=== PATIENT | female | born 1960 | race Hispanic/Latino ===

== ENCOUNTER → 2020-08-17 11:16 | Outpatient (CLI) | payer OTHER, SELFPAY ==
--- NOTE | ~2020-08-17 | XR_ITS ---
EXAMINATION: XR abdomen/kub 1V DATE: 08/17/2020 11:33 INDICATION: Right ureteral stone. TECHNIQUE: A supine view of the abdomen on 2 radiographs was obtained. COMPARISON: CT abdomen and pelvis 08/17/2020 FINDINGS: There are no dilated loops of bowel. There are phleboliths in the pelvis. There is a 7 mm c alcification in right pelvis. IMPRESSION: 1. 7 mm calcification in right pelvis in the expected area of the distal right ureter, which may be a stone or phlebolith. Reviewed, dictated and finalized at location A. NOLOGY INTERN
--- NOTE | ~2020-08-17 | CT_ITS ---
EXAMINATION: CT abdomen pelvis wo con DATE: 08/17/2020 11:33 INDICATION: Right ureteral stone. TECHNIQUE: Computed tomography (CT) of the abdomen and pelvis was performed without intravenous contr ast. Automated exposure control and iterative reconstruction technique were employed. The dose-length product was 271.57 mGy-cm. COMPARISON: None. FINDINGS: The visualized portions of lung bases are clear without pneumonia or pleural effusion. Ther e is diffuse hepatic steatosis. The gallbladder, spleen, pancreas, adrenal glands, and right kidney a re normal. There are peripelvic cysts in left kidney measuring up to 19 mm. There is a 7 mm calcifica tion in the expected area of the distal right ureter. There are no dilated loops of bowel. There is d iverticulosis of the colon without evidence of diverticulitis. There are no pathologically enlarged l ymph nodes. There is no free intraperitoneal fluid. There is mild lumbar spondylosis. IMPRESSION: 1. 7 mm calcification in the expected area of the distal right ureter which may be a stone or phlebo lith. Reviewed, dictated and finalized at location A. SLINGER OPERATOR IMPRESSION: 1. 7 mm calcification in the expected area of the distal right ureter which ma y be a stone or phlebolith.
== END ==
PROVIDERS: PCP Family Medicine; Visit Provider Urology
DX: N20.1 Calculus of ureter (principal)
CPT/HCPCS: 74018; 74176

== ENCOUNTER 2020-08-21 08:23 | Outpatient (CLI) | payer OTHER, SELFPAY | END 2020-08-21 08:24 | disposition home or self-care (01) | PROVIDERS: PCP Family Medicine; Visit Provider Urology | DX: Z01.812 Encounter for preprocedural laboratory examination (principal); N20.1 Calculus of ureter | CPT/HCPCS: 87086; 87088 ==

== ENCOUNTER 2020-08-22 01:17 | Outpatient (CLI) | payer OTHER, SELFPAY ==
[2020-08-22 18:46] LABS: SARS-CoV-2 RNA PCR Positive
== END 2020-08-22 01:18 | disposition home or self-care (01) ==
LOC: ANHCOVIDDT 01:17
PROVIDERS: PCP Family Medicine; Visit Provider Urology
DX: Z01.812 Encounter for preprocedural laboratory examination (principal); U07.1 COVID-19
CPT/HCPCS: C9803; U0003; U0005

== ENCOUNTER 2020-08-25 00:46 | Day surgery (SDC) | payer OTHER, SELFPAY ==
[2020-08-20 15:34] VITALS: BMI 24.9
--- NOTE | ~2020-08-25 | XR_ITS ---
EXAMINATION: XR retrograde pyelo w/stent RT EXAM DATE: 08/25/2020 11:52 INDICATION: Abnormal CT scan. Right ureteral stone. TECHNIQUE: Fluoroscopy used during XR retrograde pyelo w/stent RT performed by Dr. Von christopher MD. The DAP for this procedure was 100 radcm2 FINDINGS: The right ureter was cannulated and injected. There is mild right hydroureteronephrosis. A double-J ureteral stent was positioned. Correlate with procedure note. IMPRESSION: Mild right hydroureteronephrosis. Stent in position. Reviewed, dictated and finalized at location A. RAL COMMUNICATIONS SPECIALIST
--- NOTE | 2020-08-25 08:44 | P.PNAN_ITS ---
Anes - Initial Pre Proc Eval Procedure: Operation Date: 08/25/20 10:30 Proposed Procedures p Cystoscopy, Right Retrograde Pyelogram, Right Stone Extraction, Right Stent Placement - Von Hale MD s Possible Holmium Laser Procedure - Von Hale MD Date/Time: 08/25/20 08:44 Surgeon: Von Hale MD Pre Op Diagnosis: Right ureteral Calculus Patient Data Age: 59 Gender: F Height: 5 ft 5 in Weight: 68 kg Allergies Allergy/AdvReac Type Severity Reaction Status Date / Time No Known Allergies Allergy Verified 08/25/20 10:09 Home Medications Medication Instructions Recorded Confirmed Type ergocalciferol (vitamin D2) 50,000 unit PO WEEKLY 08/20/20 08/25/20 History fluoxetine 40 mg PO QAM 08/20/20 08/25/20 History levothyroxine 100 mcg PO QAM 08/20/20 08/25/20 History Patient hx anesthesia problems: none Family hx anesthesia problems: none [facility] Past Medical History Medical History (Updated 08/25/20 @ 08:44 by Loyd Valdez MD) Anxiety Depression Hypothyroid Social History Social History Smoking status: Never smoker Alcohol intake: current Alcohol use details: 3 DRINKS/DAY Substance use: never Living arrangements: with family Additional living arrangements comments: HUSB Spiritual care concerns: No Anes - Eval Final PreProcedure Day of Procedure 08/25/20 08:44 Patient weight: normal Heart: regular rate and rhythm Lungs: clear to auscultation Airway: Mallampati scale class II Neurological: alert and oriented Last oral intake: >/= 8 hours ASA classification: III Emergent: no Anesthetic plan: proceed Anesthesia type and monitoring: general LMA and standard monitoring (pt is Covid positive; will proceed with anesthesia) Informed Consent: The patient's anesthetic plan and its attendant risks and benefits were discussed with the patient/family/POA. Questions were solicited and answers provided to the satisfaction of the patient/family/POA.
--- NOTE | 2020-08-25 09:03 | WPDHPUPDATE1 ---
History and Physical Update Update Date/Time: 08/25/20 09:03 History and Physical has been reviewed, including an updated exam of the patient. There are NO changes in the patient's condition. Risks, benefits, and alternatives have been discussed and questions answered. Patient agrees to proceed with procedure. proceed wtih cysto, right retrograde, right ureteroscopy with stone extraction, possible laser, stent placement
[2020-08-25 10:20] VITALS: BMI 23.9
[2020-08-25] MEDS: LACTATED RINGERS 1,000 ML 30 ML IV CONT (10:35)
[2020-08-25 10:37] VITALS: BP 128/82; PULSE 56; RESP 18; TEMP 36.8; O2SAT 98
[2020-08-25] MEDS: ceFAZolin 2 GM/D5W 50 ML 2 GM/50 ML BAG IVPB (11:05)
[2020-08-25] MEDS: LIDOCAINE HCL 2% GEL UROJET 10 ML PKG MUCOUS MEM (11:40)
[2020-08-25 11:54] VITALS: BP 142/68; PULSE 60; RESP 16; TEMP 35.9; O2SAT 100
[2020-08-25 12:09] VITALS: BP 152/93; PULSE 68; RESP 16; O2SAT 98
[2020-08-25 12:20] VITALS: BP 160/90; PULSE 71; RESP 16; O2SAT 98
--- NOTE | 2020-08-25 12:23 | P.OP_ITS ---
Procedure Note - Detailed Date of procedure: 08/25/20 Pre-op diagnosis: Right ureteral Calculus Post-op diagnosis: same Procedure performed: Cystoscopy, right retrograde pyelogram, right ureteroscopy with holmium laser, stone extraction, right ureteral stent placement. 4.8 Telugu contour Description of procedure: Patient was taken to the operative suite and correctly identified. Once anesthesia was obtained she was placed in dorsal lithotomy position and prepped and draped usual sterile fashion. Nineteen Telugu scope was inserted in the bladder. The right ureteral orifice is cannulated with a guidewire. We dilated with an 8/10 dilator. A rigid ureteral scope was then inserted. The stone was too large to retrieve 1 piece. We then used a holmium laser fiber to fragment stone multiple pieces and the largest ones were retrieved and sent for analysis. Reinspection revealed no residual stones. Due to the amount of manipulation we did do a pyelogram to confirm placement of the stent. 4.8 Telugu contour stent was then placed with the proximal end coiled in the renal pelvis and the distal in the bladder. 2% viscous lidocaine was inserted urethra patient is taken recovery room stable condition. She will follow up in 2 weeks for stent removal Anesthesia: GLMA Surgeon: Von Hale MD Drains: Yes Packing: No Pathology: yes Complications: No immediate complications Condition: stable Disposition: PACU
[2020-08-25 12:35] VITALS: BP 141/78; PULSE 64; RESP 16
[2020-08-25 12:44] VITALS: BP 156/87; PULSE 60; RESP 16
== END 2020-08-25 13:00 | disposition home or self-care (01) ==
PROVIDERS: PCP Family Medicine; Visit Provider Urology
PROC: (CPT 52352; principal; 2020-08-25 10:30)
PROC: (CPT 52356; 2020-08-25 10:30)
DX: N13.2 Hydronephrosis with renal and ureteral calculous obstruction (principal); F41.8 Other specified anxiety disorders; E03.9 Hypothyroidism, unspecified
CPT/HCPCS: 52356; 74420; 82365; 87086; 87088; 88300; A9270; C1769; C2617; C9803; J0690; J1100; J2250; J2405; J2704; J3010; J7120; Q9966; U0003; U0005

== ENCOUNTER 2023-06-14 07:53 | Outpatient (CLI) | payer OTHER, SELFPAY ==
[2023-06-14 08:24] LABS: Hematocrit 42.5 % (37.0-47.0); Hemoglobin 13.8 g/dL (12.0-15.0)
== END 2023-06-14 07:54 | disposition home or self-care (01) ==
LOC: ANHSURGERY 07:56
PROVIDERS: PCP Family Medicine; Visit Provider Student in an Organized Health Care Education/Training Program
DX: R93.89 Abnormal findings on diagnostic imaging of other specified body structures (principal)
CPT/HCPCS: 36415; 85014; 85018

== ENCOUNTER 2023-06-15 01:23 | Day surgery (SDC) | payer OTHER, SELFPAY ==
[2023-06-12 09:59] VITALS: BMI 25.7
--- NOTE | 2023-06-12 10:04 | PC.NURSE ---
Report to the Outpatient Waiting Room, entrance under the green pavilion located off [facility], at time 12:45 on date 06/15/23. Planned Procedure Time: 2:45. Time changes happen often and if your time is changed the preop area will call you the afternoon before. - You and your visitor will be asked to self-screen and do not enter if you have any COVID symptoms. - A mask is optional within the hospital at this time. Patients may have clear liquids (water, carbonated beverages, clear teas, apple juice) until 3 hours prior to surgery with a maximum of 20 ounces. - No food from midnight until time of surgery Take the following medications with a SIP of water the morning of surgery: FLUOXETINE, LEVOTHYROXINE DO NOT STOP ANY OF YOUR OTHER PRESCRIPTION MEDICATIONS PRIOR TO SURGERY ?EXCEPT THE FOLLOWING Medications to discontinue per physician: N/A Date to take last dose: N/A Please no make-up, nail anguillan, hairspray, perfume, deodorant, or body powder the day of surgery. No jewelry (including any body piercings) or valuables the day of surgery, leave them at home. Please take a shower or bath the night before, or the morning of, surgery with an antibacterial soap. Wear comfortable, loose fitting clothing. - Jewelry must be removed prior to entering the operating room. Rings and piercings that are not removed may be cut off. - The hospital will not accept responsibility for valuables. - Please leave all valuables, including medications, at home the day of surgery. If you are going home after surgery, a licensed cement truck driver must drive you home. - NO public transportation without another adult if you receive anesthesia. - We recommend that an adult stay with you for 24 hours following discharge. - We also recommend that you do not drive, make important decision, drink alcoholic beverages, or take any drugs that were not prescribed by your health care provider for at least 24 hours after your discharge time. Follow any additional instructions given to you from your surgeon. If you or anyone in your household have experienced Covid symptoms in the past week, please notify your surgeon or the nurse liaison at the phone number below for possible testing. Telephone instructions given to PT - GREY CASTANEDA and asked if any additional questions and then verbalized understanding. Patient advised to call surgeon office or pre surgery nurse liaison [phone] if any additional questions.
[2023-06-15] VITALS (7 sets, daily range): BP systolic 116–149; BP diastolic 74–90; PULSE 58–81; RESP 12–20; TEMP 36.1–36.8; O2SAT 96–100
[2023-06-15] MEDS: LACTATED RINGERS 1,000 ML 30 ML IV CONT ×2 (13:00→15:45)
[2023-06-15] MEDS: ONDANSETRON INJ 4 MG/2 ML VIAL IV PUSH (13:10)
--- NOTE | 2023-06-15 13:20 | PM.IMHP ---
H&P: HPI History of Present Illness Date/Time: 06/15/23 13:20 Chief Complaint: thickened endometrium on US pelvic pain Narrative: 62-year-old female who presents for hysteroscopy D&C.? Patient states she has been having vaginal discomfort for some time.? Patient experiences vaginal dryness and dyspareunia.? The patient states she went through menopause in her 40s.? Patient denies any vaginal bleeding.? Patient presented to her primary care physician with complaint of this pelvic pain.? PCP ordered a pelvic ultrasound which returned with a thickened endometrium. Review of Systems Cardiovascular: Cardiovascular: Denies chest pain, Denies leg edema, Denies palpitations, Denies dyspnea and Denies dyspnea on exertion Respiratory: Respiratory: Denies cough, Denies dyspnea and Denies dyspnea on exertion Gastrointestinal: Gastrointestinal: Denies abdominal pain, Denies constipation, Denies diarrhea, Denies nausea and Denies vomiting Genitourinary: Genitourinary: Denies hematuria, Denies urinary frequency, Denies dysuria, Denies pelvic pain, Denies urinary incontinence and Denies vaginal discharge Neurologic: Reports system reviewed and no additional complaints, except as documented Psychiatric: Psychiatric: Reports no additional psychiatric complaints Endocrine: Endocrine: Denies palpitations PMFSH Past Medical History Medical History (Updated 06/07/23 @ 14:14 by Jairo Loera MD) Anxiety Depression Hypothyroid Surgical History Surgical History (Updated 06/07/23 @ 11:05 by JANA Levy) History of appendectomy Family History Family History (Updated 06/07/23 @ 11:06 by JANA Levy) Mother Breast cancer, Onset Age: 50 Sibling Breast cancer sister Suicide little sister Other Depression Social History Social History (Updated 06/07/23 @ 11:07 by JANA Levy) Smoking status: Never smoker Second hand tobacco smoke exposure: No Alcohol intake: current Drinks per week: 14 Alcohol use details: 3 DRINKS/DAY Substance use: never Substance use type: does not use Lack of Transportation: No Lack of Food: Never True Current Housing: I Have Housing Concerned About Future Housing: No Difficulty Paying Gas/Electric Bills: No Difficulty Paying for Meds: No Currently Unemployed: No Difficulty w/ Childcare or Family Care: No Living arrangements: with family Additional living arrangements comments: HUSB Occupation/Education: occupation 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 Gender identity (if verbalized by the patient): Female Sexual Orientation (if Verbalized by the Patient): Straight or Heterosexual Spiritual care concerns: No Meds Home Medications and Allergies Home Medications Medication Instructions Recorded Confirmed Type ergocalciferol (vitamin D2) 1,250 50,000 unit PO WEEKLY 08/20/20 06/15/23 History mcg (50,000 unit) capsule fluoxetine 40 mg capsule 40 mg PO QAM 08/20/20 06/15/23 History atorvastatin 10 mg tablet 10 mg PO DAILY 06/12/23 06/15/23 History levothyroxine 125 mcg tablet 125 mcg PO DAILY 06/12/23 06/15/23 History (Synthroid) Allergies Allergy/AdvReac Type Severity Reaction Status Date / Time No Known Allergies Allergy Verified 06/15/23 13:12 Vital Signs Vital Signs - 24 hr 06/15/23 13:00 Temperature 97.6 F Pulse Rate 75 Respiratory Rate 18 Blood Pressure 136/90 Pulse Oximetry 100 Oxygen Delivery Room Air Exam Const: General: no acute distress Eyes: EOM: EOMs intact bilaterally Neck: Neck: supple Thyroid: thyroid normal Chest: Breast/axilla inspection: normal inspection of the breasts Breast/axilla palpation: normal palpation of the breasts, normal palpation of the axillae and no axillary lymphadenopathy Resp: Effort & Inspection: normal respiratory effort Auscultation: clear to auscultation bilaterally Cardio: Rate: regula
--- NOTE | 2023-06-15 13:22 | WPDHPUPDATE1 ---
History and Physical Update Update Date/Time: 06/15/23 13:22 History and Physical has been reviewed, including an updated exam of the patient. There are NO changes in the patient's condition. Risks, benefits, and alternatives have been discussed and questions answered. Patient agrees to proceed with procedure.
--- NOTE | 2023-06-15 14:20 | WPDANESEPPF ---
Anes - Initial Pre Proc Eval Procedure: Operation Date: 06/15/23 14:45 Proposed Procedures p Hysteroscopy, Dilation and Curettage - Jairo Loera MD Date/Time: 06/15/23 14:20 Surgeon: Jairo Loera MD Pre Op Diagnosis: Endometrial Hyperplasia Patient Data Age: 62 Gender: F Height: 1.65 m Weight: 74.1 kg Last Vital Signs Temp 36.4 C 06/15/23 13:00 Pulse 75 06/15/23 13:00 Resp 18 06/15/23 13:00 BP 136/90 06/15/23 13:00 Pulse Ox 100 06/15/23 13:00 O2 Del Method Room Air 06/15/23 13:00 Allergies Allergy/AdvReac Type Severity Reaction Status Date / Time No Known Allergies Allergy Verified 06/15/23 13:12 Home Medications Medication Instructions Recorded Confirmed Type ergocalciferol (vitamin D2) 1,250 50,000 unit PO WEEKLY 08/20/20 06/15/23 History mcg (50,000 unit) capsule fluoxetine 40 mg capsule 40 mg PO QAM 08/20/20 06/15/23 History atorvastatin 10 mg tablet 10 mg PO DAILY 06/12/23 06/15/23 History levothyroxine 125 mcg tablet 125 mcg PO DAILY 06/12/23 06/15/23 History (Synthroid) Patient hx anesthesia problems: post op nausea/vomiting Family hx anesthesia problems: none Results Review: All pre-operative results and documents have been reviewed as part of the pre-operative evaluation. [facility] Past Medical History Medical History Anxiety Depression Hypothyroid Surgical History Surgical History History of appendectomy Family History Family History Mother Breast cancer, Onset Age: 50 Sibling Breast cancer sister Suicide little sister Other Depression Social History Social History Smoking status: Never smoker Second hand tobacco smoke exposure: No Alcohol intake: current Drinks per week: 14 Alcohol use details: 3 DRINKS/DAY Substance use: never Substance use type: does not use Lack of Transportation: No Lack of Food: Never True Current Housing: I Have Housing Concerned About Future Housing: No Difficulty Paying Gas/Electric Bills: No Difficulty Paying for Meds: No Currently Unemployed: No Difficulty w/ Childcare or Family Care: No Living arrangements: with family Additional living arrangements comments: HUSB Occupation/Education: occupation Additional occupation/education comments: [employer] Gender identity (if verbalized by the patient): Female Sexual Orientation (if Verbalized by the Patient): Straight or Heterosexual Spiritual care concerns: No Anes - Eval Final PreProcedure Day of Procedure 06/15/23 14:20 Patient weight: overweight Heart: regular rate and rhythm Lungs: clear to auscultation Airway: Mallampati scale class II Neurological: alert and oriented Last oral intake: >/= 8 hours ASA classification: III Emergent: no Anesthetic plan: proceed Anesthesia type and monitoring: general ETT and standard monitoring Results Review: All pre-operative results and documents have been reviewed as part of the pre-operative evaluation. Informed Consent: The patient's anesthetic plan and its attendant risks and benefits were discussed with the patient/family/POA. Questions were solicited and answers provided to the satisfaction of the patient/family/POA.
[2023-06-15] MEDS: SCOPOLAMINE 1.5 MG PATCH TRANSDERM (14:40)
--- NOTE | 2023-06-15 15:38 | P.OP_ITS ---
Procedure Note - Detailed Date of Procedure 06/15/23 Pre-op Diagnosis thickened endometrium on pelvic US Post-op Diagnosis Same Procedure Performed hysteroscopy D&C exploratory laparoscopy Surgeon Jairo Loera MD Anesthesia General Indications thickened endometrium on pelvic US Findings minor endometrial adhesions noted, bilateral tubal ostia normal fundal uterine perforation with curettage approximately 350 mL of saline in the abdomen no active bleeding or intraabdominal tissue damage noted Description of Procedure Camila Ambrose presents for the above procedure for thickened endometrium. She was counseled as to the indications, risks, benefits, and alternatives to surgery, with the risks including bleeding, infection, damage to surrounding organs, VTE, and complications of anesthesia. Her verbal and written consent was obtained. PROCEDURE: The patient was taken to the OR and general anesthesia induced. She was prepped and draped in Wil stirrups with support of the back and bilateral lower extremities. I/O catheterization performed of the bladder. The above findings were noted. A single tooth tenaculum was placed on the anterior lip of the cervix. The cervix was dilated with sequential Meseret dilators. Hysteroscopy, using a normal saline medium, was performed and showed the above findings. Sharp uterine curettage was then performed and tissue placed on Telfa. On the fourth pass of the sharp curettage there was a loss of resistance. No brisk or active bleeding was noted. Uterine perforation was suspect. The curettage was immediately removed. The hysteroscope was re- introduced. There was rapid loss of hysteroscopic fluid noted. At this time the hysteroscopic portion of the procedure was ended. Decision was made to proceed with exploratory laparoscopy to evaluate any further damage. The abdomen was re-draped and prepped in the usual fashion. The umbilicus was infiltrated with 1% lidocaine. A 5 mm umbilical incision was made. The abdomen was entered under direct visualization with a 5mm laparoscopic camera in the optiview port. The abdomen was insufflated with 2-3 L of CO2. Abdominal survey was performed. There was approximately 350 mL of saline in the abdominal cavity which is consistent with the fluid loss on the hysteroscopic fluid management machine. A perforation was noted on the right uterine fundus. Hemostasis was noted. There was no obvious tissue damage to the bowels or any surrounding tissue. Once we confirm no further injury or bleeding, the laparoscopic portion was ended. All instruments and ports were removed from the abdomen. The laparoscopic incision was closed with 4-0 vicryl. The tenaculum was removed and hemostasis was observed. The patient tolerated the procedure well. Sponge, lap, and needle counts were correct. The patient received Ancef after perforation fo prophylaxis and had SCD's on throughout the case for VTE prophylaxis. The patient was taken to the recovery room in stable condition. Estimated Blood Loss 20 Drains No Packing No Pathology Yes (endometrial curettings ) Complications Other complications (uterine perforation) Condition Stable Disposition PACU [facility] Billing Surgery - Charge Forward: Surgery Billing
[2023-06-15] MEDS: LIDOCAINE HCL 1% LOCAL INJ 20 ML VIAL 5 ML INFILTRATE (15:43)
--- NOTE | 2023-06-15 16:43 | PC.NURSE ---
This patient, Camila Ambrose, was received from PACU on 06/15/23 at 1643. Patient/family oriented to unit policies and routines
[2023-06-15] MEDS: HYDROcodone/acetaminophen (*CRX) 5-325 MG TABLET 1 TAB PO (20:45)
[2023-06-16 00:30] VITALS: BP 113/81; PULSE 69; RESP 16; TEMP 37; O2SAT 96
[2023-06-16 04:45] VITALS: BP 112/79; PULSE 56; RESP 20; TEMP 36.9; O2SAT 97
[2023-06-16 05:07] LABS: Hematocrit 40.5 % (37.0-47.0); Hemoglobin 12.7 g/dL (12.0-15.0); Immature Granulocyte Absolute 0.04 K/mm3 (0.00-0.031); Immature Granulocyte Percent A 0.5 % (0-0.5); Lymphocytes Absolute Auto 0.82 K/mm3 (0.9-3.2); Lymphocytes Percent Auto 10.2 % (18.3-44.2); Mean Corpuscular HGB Conc 31.4 g/dl (32-36); Mean Corpuscular Hemoglobin 29.9 pg (26-34); Mean Corpuscular Volume 95.3 fl (80-100); Mean Platelet Volume 11.4 fl (7.4-10.4); Monocytes Absolute Auto 0.4 K/mm3 (0.1-0.6); Monocytes Percent Auto 4.6 % (2.6-8.5); Neutrophils Absolute Auto 6.8 K/mm3 (1.3-6.7); Neutrophils Percent Auto 84.7 % (45.5-73.1); Platelet Count Result 209 k/mm3 (150-375); Red Blood Count 4.25 M/mm3 (4.2-5.4); Red Cell Distribution Width 13.2 % (11.5-14.5); White Blood Count 8.1 K/mm3 (4.5-10.0)
--- NOTE | 2023-06-16 06:43 | PM.GYNPNOP ---
PROP WORKER - A/P Postoperative Procedures: Procedures Operation Date: 06/15/23 14:45 Actual Procedure Side Surgeon p Hysteroscopy, Dilation and Curettage Not Applicable Jairo Loera MD s Diagnostic Laparoscopy Not Applicable Jairo Loera MD Postoperative day: 1 Postoperative status: doing well Postoperative plan: routine post-op care and discharge Time Spent With Patient Time: Total time spent is greater than 50% in coordination of care (as documented) at patient's floor/unit and/or counseling patient: Time with patient: less than 15 minutes PROP WORKER- PN:Subj Post-Op Subjective Date/time seen: 06/16/23 06:43 Interval history: POD#1 Denies reports doing well today. No issues overnight. Her pain is controlled. She has tolerated regular diet. She reports a small amount of vaginal bleeding. She has voided. She has passed flatus. She has ambulated and denies any symptoms of anemia. No questions/concerns. Review of Systems Review of Systems: All systems reviewed & are unremarkable except as noted in HPI and below (HPI) Constitutional: Constitutional: Denies chills, Denies fever(s) and Denies headache(s) Eyes: Eyes: Denies change in vision ENT: Denies dizziness and Denies headache(s) Cardiovascular: Cardiovascular: Denies chest pain and Denies rapid heart rate Respiratory: Respiratory: Denies cough Genitourinary: Genitourinary: Denies abnormal vaginal bleeding Neurologic: Denies dizziness and Denies headache(s) Exam Const: General: cooperative, healthy appearing, comfortable and no acute distress Orientation/consciousness: patient oriented x3 Resp: Effort & Inspection: normal respiratory effort Auscultation: clear to auscultation bilaterally Cardio: Rate: regular rate GI: Inspection: normal to inspection and incision (5 LSC incisions ) GI Palp: Yes abdominal tenderness (appropriate) and Yes Soft to palpation Auscultation: normal bowel sounds : Other: normal bleeding on pad Skin: General skin exam: normal color Neuro: General: patient oriented x3 Psych: Appearance: grossly normal Affect: normal affect Attitude: cooperative PROP WORKER - PN: Obj Data Vital Signs Vital Signs: Vital Signs - 24 hr 06/15/23 13:00 06/15/23 15:45 06/15/23 16:00 Temperature 97.6 F 97.4 F L Pulse Rate 75 81 78 Respiratory Rate 18 12 20 Blood Pressure 136/90 144/78 H 116/74 Pulse Oximetry 100 100 100 Oxygen Delivery Room Air Simple Face Mask Simple Face Mask Oxygen Flow Rate 8 8 06/15/23 16:15 06/15/23 16:30 06/15/23 17:00 Temperature 97.0 F L Pulse Rate 75 65 65 Respiratory Rate 20 20 18 Blood Pressure 128/77 136/75 149/80 H Pulse Oximetry 98 96 100 Oxygen Delivery Room Air Room Air Oxygen Flow Rate 06/15/23 19:40 06/16/23 00:30 06/16/23 04:45 Temperature 98.2 F 98.6 F 98.5 F Pulse Rate 58 L 69 56 L Respiratory Rate 14 16 20 Blood Pressure 129/85 113/81 112/79 Pulse Oximetry 96 96 97 Oxygen Delivery Oxygen Flow Rate Intake/Output Intake/Output: Intake & Output 06/13/23 06/14/23 06/15/23 06/16/23 23:59 23:59 23:59 23:59 Intake Total 200 Balance 200 Meds/Results Medications: Active Medications Generic Name Dose Route Start Last Admin Trade Name Freq PRN Reason Stop Dose Admin Hydrocodone Bitart/Acetaminophen 1 tab 06/15/23 16:37 06/15/23 20:45 Hydrocodone/Acetaminophen (*Crx) 5-325 Mg Tablet PO 1 tab Q3H PRN Administration Pain Rated 5 or Less Atorvastatin Calcium 10 mg 06/16/23 09:00 Atorvastatin 10 Mg Tablet PO DAILY [facility] Ergocalciferol 50,000 units 06/24/23 09:00 Ergocalciferol 50,000 Units Capsule PO Sa@0900 [facility] Fluoxetine HCl 40 mg 06/16/23 09:00 Fluoxetine Hcl 20 Mg Capsule PO QAM [facility] Ibuprofen 600 mg 06/15/23 16:37 Ibuprofen 600 Mg Tablet PO Q6H PRN Cramping Levothyroxine Sodium 125 mcg 06/16/23 06:30 Levothyroxine Sodium 125 Mcg Tablet PO DAILY@0630 [facility] N
[2023-06-16 07:35] VITALS: BP 127/71; PULSE 79; RESP 16; TEMP 36.9; O2SAT 96
[2023-06-16] MEDS: HYDROcodone/acetaminophen (*CRX) 5-325 MG TABLET 1 TAB PO (08:29)
[2023-06-16] MEDS: LEVOTHYROXINE SODIUM 125 MCG TABLET PO (08:29)
[2023-06-16] MEDS: IBUPROFEN 600 MG TABLET PO (08:29)
--- NOTE | 2023-06-16 08:45 | WPDANESPN ---
Anes - Prog Note Post-Op Date/Time: 06/16/23 08:45 Cardiovascular status: normal Respiratory status: normal Airway patency: baseline Mental status: baseline Post-Op hydration status: normal Vital Signs: Last Vital Signs Temp 36.9 C 06/16/23 04:45 Pulse 56 L 06/16/23 04:45 Resp 20 06/16/23 04:45 BP 112/79 06/16/23 04:45 Pulse Ox 97 06/16/23 04:45 O2 Del Method Room Air 06/15/23 16:30 O2 Flow Rate 8 06/15/23 16:00 Pain Score (VAS): no complaints I/O: Intake & Output 06/15/23 06/16/23 06/16/23 23:59 07:59 15:59 Intake Total 200 Balance 200 Laboratory Tests 06/16/23 04:54 06/16/23 04:54 WBC 8.1 RBC 4.25 Hgb 12.7 Hct 40.5 MCV 95.3 MCH 29.9 MCHC 31.4 L RDW 13.2 Plt Count 209 MPV 11.4 H Immature Gran % (Auto) 0.5 Neut % (Auto) 84.7 H Lymph % (Auto) 10.2 L [place] % (Auto) 4.6 Eos % (Auto) 0.0 Baso % (Auto) 0.0 L Lymph # (Auto) 0.82 L [place] # (Auto) 0.4 Eos # (Auto) 0.0 Baso # (Auto) 0.0 Abs Immat Gran (auto) 0.04 H Absolute Neuts (auto) 6.8 H Absolute Nucleated RBC 0.0 Nucleated RBC % 0.0 Post-procedural complaints: none Patient Feedback: Patient satisfied with anesthetic care.
== END 2023-06-16 09:50 | disposition home or self-care (01) ==
LOC: ANHSURGERY 12:25 → ANHOB2 16:39
PROVIDERS: PCP Family Medicine; Visit Provider Student in an Organized Health Care Education/Training Program
PROC: 0U5B8ZZ Destruction of Endometrium, Via Natural or Artificial Opening Endoscopic (ICD-10-PCS; CPT 58563; principal; 2023-06-15 14:45)
PROC: (CPT 49320; 2023-06-15 14:45)
DX: R94.39 Abnormal result of other cardiovascular function study (principal); N94.10 Unspecified dyspareunia; F41.9 Anxiety disorder, unspecified; F32.A Depression, unspecified; E03.9 Hypothyroidism, unspecified; Z80.3 Family history of malignant neoplasm of breast
CPT/HCPCS: 58558; 36415; 85025; 88305; 99199; A9270; J0330; J0690; J1100; J1200; J2250; J2371; J2405; J2704; J3010; J7120

== ENCOUNTER 2023-07-25 07:50 | Outpatient (CLI) | payer OTHER, SELFPAY ==
--- NOTE | 2023-07-25 08:02 | ECG_ITS ---
Measurements Intervals [place] Rate: 63 P: 65 ND: 138 QRS: 45 QRSD: 70 T: 48 QT: 417 QTc: 428 Interpretive Statements SINUS RHYTHM POSSIBLE LEFT ATRIAL ENLARGEMENT [-0.1mV P WAVE IN V1/V2] NO PREVIOUS ECG AVAILABLE FOR COMPARISON Electronically Signed On 07-25-2023 13:36:37 SAND CUTTING MACHINE OPERATOR by Romina Vasquez M.D.
[2023-07-25 08:35] LABS: Hematocrit 41.4 % (37.0-47.0); Hemoglobin 13.3 g/dL (12.0-15.0); Mean Corpuscular HGB Conc 32.1 g/dl (32-36); Mean Corpuscular Hemoglobin 29.8 pg (26-34); Mean Corpuscular Volume 92.6 fl (80-100); Mean Platelet Volume 11.2 fl (7.4-10.4); Platelet Count Result 268 k/mm3 (150-375); Red Blood Count 4.47 M/mm3 (4.2-5.4); Red Cell Distribution Width 13.2 % (11.5-14.5); White Blood Count 5.2 K/mm3 (4.5-10.0)
== END 2023-07-25 07:51 | disposition home or self-care (01) ==
PROVIDERS: PCP Family Medicine; Visit Provider Student in an Organized Health Care Education/Training Program
DX: Z01.818 Encounter for other preprocedural examination (principal); R93.1 Abnormal findings on diagnostic imaging of heart and coronary circulation; R93.89 Abnormal findings on diagnostic imaging of other specified body structures; E78.00 Pure hypercholesterolemia, unspecified
CPT/HCPCS: 36415; 85027; 86850; 86900; 86901; 93005

== ENCOUNTER 2023-07-27 00:30 | Day surgery (SDC) | payer OTHER, SELFPAY ==
[2023-07-21 15:06] VITALS: BMI 26.7
--- NOTE | 2023-07-21 15:11 | PC.NURSE ---
Report to the Outpatient Waiting Room, entrance under the green pavilion located off [facility], at time 11:00am on date 07-27-23. Planned Procedure Time: 1:00pm. Time changes happen often and if your time is changed the preop area will call you the afternoon before. - You and your visitor will be asked to self-screen and do not enter if you have any COVID symptoms. - A mask is optional within the hospital at this time. Patients may have clear liquids (water, carbonated beverages, clear teas, apple juice) until 3 hours prior to surgery (10:00am) with a maximum of 20 ounces. - No food from midnight until time of surgery Take the following medications with a SIP of water the morning of surgery: synthroid DO NOT STOP ANY OF YOUR OTHER PRESCRIPTION MEDICATIONS PRIOR TO SURGERY ?EXCEPT THE FOLLOWING Medications to discontinue per physician n/a (takes vit weekly) Please no make-up, nail palauan, hairspray, perfume, deodorant, or body powder the day of surgery. No jewelry (including any body piercings) or valuables the day of surgery, leave them at home. Please take a shower or bath the night before, or the morning of, surgery with an antibacterial soap. Wear comfortable, loose fitting clothing. - Jewelry must be removed prior to entering the operating room. Rings and piercings that are not removed may be cut off. - The hospital will not accept responsibility for valuables. - Please leave all valuables, including medications, at home the day of surgery. If you are going home after surgery, a licensed lokie driver must drive you home. - NO public transportation without another adult if you receive anesthesia. - We recommend that an adult stay with you for 24 hours following discharge. - We also recommend that you do not drive, make important decision, drink alcoholic beverages, or take any drugs that were not prescribed by your health care provider for at least 24 hours after your discharge time. Follow any additional instructions given to you from your surgeon. If you or anyone in your household have experienced Covid symptoms in the past week, please notify your surgeon or the nurse liaison at the phone number below for possible testing. Telephone instructions given to PATIENT and asked if any additional questions and then verbalized understanding. Patient advised to call surgeon office or pre surgery nurse liaison [phone] if any additional questions.
--- NOTE | 2023-07-26 14:47 | WPDANESEPPF ---
Anes - Initial Pre Proc Eval Procedure: Operation Date: 07/27/23 12:00 Proposed Procedures p Robotic Assisted Total Laparoscopic Hysterectomy with Bilateral Salpingo-Oophorectomy - Jairo Loera MD Date/Time: 07/26/23 14:47 Surgeon: Jairo Loera MD Pre Op Diagnosis: uterine fibroid Patient Data Age: 62 Gender: F Height: 1.65 m Weight: 73 kg Allergies Allergy/AdvReac Type Severity Reaction Status Date / Time No Known Allergies Allergy Verified 07/27/23 10:10 Home Medications Medication Instructions Recorded Confirmed Type ergocalciferol (vitamin D2) 1,250 50,000 unit PO WEEKLY 08/20/20 07/21/23 History mcg (50,000 unit) capsule fluoxetine 40 mg capsule 40 mg PO QAM 08/20/20 07/21/23 History atorvastatin 10 mg tablet 10 mg PO DAILY 06/12/23 07/21/23 History levothyroxine 125 mcg tablet 125 mcg PO DAILY 06/12/23 07/21/23 History (Synthroid) Patient hx anesthesia problems: none Family hx anesthesia problems: none Results Review: All pre-operative results and documents have been reviewed as part of the pre-operative evaluation. [facility] Past Medical History Medical History (Updated 07/26/23 @ 14:48 by Hardik Farris DO) Anxiety Depression Hyperlipidemia Hypothyroid Panic attack PONV (postoperative nausea and vomiting) Surgical History Surgical History (Updated 06/28/23 @ 14:10 by Donita Reddy CMA) History of appendectomy History of hysteroscopy D & C Family History Family History Mother Breast cancer, Onset Age: 50 Sibling Breast cancer sister Suicide little sister Other Depression Social History Social History Smoking status: Never smoker Second hand tobacco smoke exposure: No Alcohol intake: current Drinks per week: 3 Alcohol use details: 3 DRINKS/DAY Substance use: never Substance use type: does not use Lack of Transportation: No Lack of Food: Never True Current Housing: I Have Housing Concerned About Future Housing: No Difficulty Paying Gas/Electric Bills: No Difficulty Paying for Meds: No Currently Unemployed: No Difficulty w/ Childcare or Family Care: No Living arrangements: with family Additional living arrangements comments: [place] Occupation/Education: occupation Additional occupation/education comments: [employer] Gender identity (if verbalized by the patient): Female Sexual Orientation (if Verbalized by the Patient): Straight or Heterosexual Spiritual care concerns: No Anes - Eval Final PreProcedure Day of Procedure 07/26/23 14:47 Patient weight: overweight Heart: regular rate and rhythm Lungs: clear to auscultation Airway: Mallampati scale class II Neurological: alert and oriented Last oral intake: >/= 8 hours ASA classification: III Emergent: no Anesthetic plan: proceed Anesthesia type and monitoring: general ETT and standard monitoring Results Review: All pre-operative results and documents have been reviewed as part of the pre-operative evaluation. Informed Consent: The patient's anesthetic plan and its attendant risks and benefits were discussed with the patient/family/POA. Questions were solicited and answers provided to the satisfaction of the patient/family/POA.
[2023-07-27] VITALS (10 sets, daily range): BP systolic 95–129; BP diastolic 57–113; PULSE 50–89; RESP 12–18; TEMP 36.2–36.9; O2SAT 94–100
--- NOTE | 2023-07-27 07:52 | PM.IMHP ---
H&P: HPI History of Present Illness Date/Time: 07/27/23 07:52 Chief Complaint: pelvic pain uterine fibroid Narrative: 62-year-old female who presents for robotic assisted TLH / BSO for pelvic pain and uterine fibroid. Patient initially presented to her primary care physician for pelvic pain. Pelvic ultrasound showed a thickened endometrium. Patient was sent for me hysteroscopy and D&C. Procedure was complicated by perforation diagnostic laparoscopy was performed. At that time a pedunculated uterine fibroid was noted. Patient continue to have pelvic pain. Patient elects for surgical management via hysterectomy Review of Systems Review of Systems: All systems reviewed & are unremarkable except as noted in HPI and below Cardiovascular: Cardiovascular: Denies chest pain, Denies leg edema, Denies palpitations, Denies dyspnea and Denies dyspnea on exertion Respiratory: Respiratory: Denies cough, Denies dyspnea and Denies dyspnea on exertion Gastrointestinal: Gastrointestinal: Denies abdominal pain, Denies constipation, Denies diarrhea, Denies nausea and Denies vomiting Genitourinary: Genitourinary: Denies hematuria, Denies urinary frequency, Denies dysuria, Denies pelvic pain, Denies urinary incontinence and Denies vaginal discharge Neurologic: Reports system reviewed and no additional complaints, except as documented Psychiatric: Psychiatric: Reports no additional psychiatric complaints Endocrine: Endocrine: Denies palpitations PMFSH Past Medical History Medical History (Updated 07/26/23 @ 14:48 by Hardik Farris DO) Anxiety Depression Hyperlipidemia Hypothyroid Panic attack PONV (postoperative nausea and vomiting) Surgical History Surgical History (Updated 06/28/23 @ 14:10 by Donita Reddy CMA) History of appendectomy History of hysteroscopy D & C Family History Family History Mother Breast cancer, Onset Age: 50 Sibling Breast cancer sister Suicide little sister Other Depression Social History Social History Smoking status: Never smoker Second hand tobacco smoke exposure: No Alcohol intake: current Drinks per week: 3 Alcohol use details: 3 DRINKS/DAY Substance use: never Substance use type: does not use Lack of Transportation: No Lack of Food: Never True Current Housing: I Have Housing Concerned About Future Housing: No Difficulty Paying Gas/Electric Bills: No Difficulty Paying for Meds: No Currently Unemployed: No Difficulty w/ Childcare or Family Care: No Living arrangements: with family Additional living arrangements comments: [facility] Occupation/Education: occupation Additional occupation/education comments: [employer] Gender identity (if verbalized by the patient): Female Sexual Orientation (if Verbalized by the Patient): Straight or Heterosexual Spiritual care concerns: No Meds Home Medications and Allergies Home Medications Medication Instructions Recorded Confirmed Type ergocalciferol (vitamin D2) 1,250 50,000 unit PO WEEKLY 08/20/20 07/21/23 History mcg (50,000 unit) capsule fluoxetine 40 mg capsule 40 mg PO QAM 08/20/20 07/21/23 History atorvastatin 10 mg tablet 10 mg PO DAILY 06/12/23 07/21/23 History levothyroxine 125 mcg tablet 125 mcg PO DAILY 06/12/23 07/21/23 History (Synthroid) Allergies Allergy/AdvReac Type Severity Reaction Status Date / Time No Known Allergies Allergy Verified 07/21/23 15:04 Exam Const: General: no acute distress Eyes: EOM: EOMs intact bilaterally Neck: Neck: supple Thyroid: thyroid normal Chest: Breast/axilla inspection: normal inspection of the breasts Breast/axilla palpation: normal palpation of the breasts, normal palpation of the axillae and no axillary lymphadenopathy Resp: Effort & Inspection: normal respiratory eff
[2023-07-27] MEDS: LACTATED RINGERS 1,000 ML 30 ML IV CONT ×2 (10:30→13:58)
[2023-07-27] MEDS: KETOROLAC 15 MG/ML VIAL (*BKC) IV PUSH (10:35)
[2023-07-27] MEDS: ACETAMINOPHEN 500 MG TABLET 1000 MG PO (10:35)
[2023-07-27] MEDS: SCOPOLAMINE 1 MG PATCH 1 PATCH TRANSDERM (11:07)
--- NOTE | 2023-07-27 11:26 | WPDHPUPDATE1 ---
History and Physical Update Update Date/Time: 07/27/23 11:26 History and Physical has been reviewed, including an updated exam of the patient. There are NO changes in the patient's condition. Risks, benefits, and alternatives have been discussed and questions answered. Patient agrees to proceed with procedure.
[2023-07-27] MEDS: ceFAZolin 2 GM/D5W 50 ML 2 GM/50 ML BAG IVPB (12:39)
[2023-07-27] MEDS: LIDO 1%/EPINEPHRINE 1:100,000 20 ML VIAL 30 ML INFILTRATE (13:18)
--- NOTE | 2023-07-27 13:41 | W.PM.PROC2 ---
Procedure Note - Detailed Date of Procedure 07/27/23 Pre-op Diagnosis uterine fibroid pelvic pain Post-op Diagnosis Same Procedure Performed robotic assisted total laparoscopic hysterectomy with bilateral salpingo-oophorectomy Surgeon Jairo Loera MD Anesthesia General Findings pedunculated uterine fibroid located the right fundus. Normal appearing fallopian tubes and ovaries bilaterally Description of Procedure PROCEDURE IN DETAIL: After the patient was appropriately consented she was taken to the operating room where she was transferred to the table in a dorsal supine position. General anesthesia was then induced with endotracheal intubation. The patient was transferred to a dorsal lithotomy position using adjustable yellow-fin stirrups. Her position was adjusted for appropriate support of her lower back and lower extremities. The patient was prepped and draped. A transurethral maldonado catheter was place. The cervix was sequentially dilated and a EPG uterine manipulator placed in typical fashion about a 3cm ANDREA ring. Gloves were changed. After confirmation of a functioning orogastric tube, lidocaine was injected at Zimmerman's point in the LUQ and a 5mm incision was made. A 5mm Optiview trocar was then inserted into the abdominal cavity under direct visualization and done so without complication. The abdomen was then insufflated with approximately 2-3L of CO2 establishing a pneumoperitoneum and the patient was placed in Trendelenburg position. Just above the umbilicus in the midline, a 8 mm incision made after injection of lidocaine and a 8 mm bladeless trocar advanced into the abdominal cavity under direct visualization without incident. We subsequently placed two robotic ports in a similar fashion, one in the left mid-quadrant and one in the right, 10cm lateral to the midline port. The robot was then docked. The left round ligament was divided and the pararectal and paravesicle spaces developed, identifying the course of the ureter. The infundibulopelvic ligaments were skeletonized, triply coagulated and then transected with monopolar michelle away from the course of the ureter. The posterior aspect of the broad ligament was then skeletonized down to the level of the internal cervical os, mobilizing the ureter laterally. The bladder flap was then created sharply. The ipsilateral uterine artery was skeletonized, bipolar cauterized and transected. A similar procedure was performed on the contralateral side, developing the pelvic spaces, coagulating and dividing the IP away from the ureter, completing the bladder flap, and skeletonizing, ligating, and dividing the uterine artery on this side. We ensured the vaginal pneumo-occluder balloon was insufflated and made a circumferential colpotomy using monopolar current. The uterus, cervix, bilateral tubes and ovaries were then delivered transvaginally. I then re-approximated the colpotomy with a single interuppted 0-vicryl at the left apex and running #1 PDO Quill suture in 2 layers. Following this dissection, the abdomen and pelvis were copiously irrigated and all surgical sites found to be hemostatic. The midline port site fascia was reapproximated with sutures of 0-Vicryl using a Pablito-Jun device. Skin sites were reapproximated with 4-0 Vicryl in a subcuticular fashion. Steri-Strips were placed. The patient tolerated the procedure well. Sponge, needle and instrument counts were correct x 2 and the patient was taken to recovery in stable condition. Ancef was given for antimicrobial prophylaxis. The patient had SCD's on for VTE prophylaxis during the entire procedure. Estimated Blood Loss 25 Drains No Packing No Pathology Yes (uterus, cervix, bilateral fallopian tubes, bilateral ovaries ) Complications No immediate complications Condition Stable Disposition PACU [facility] Billing Surgery - Charge Forward: Surgery Billing
[2023-07-27] MEDS: fentaNYL CITRATE INJ (*CRX) 100 MCG/2 ML VIAL 25 MCG IV PUSH ×4 (14:32→15:29)
--- NOTE | 2023-07-27 15:38 | PC.NURSE ---
This patient, Camila Ambrose, was received from PACU on 07/27/23 at 1538. Patient/family oriented to unit policies and routines.
[2023-07-27] MEDS: DEXTROSE 5%/LACTATED RINGERS 1,000 ML 125 ML IV CONT (16:00)
[2023-07-27] MEDS: KETOROLAC 30 MG/ML VIAL (*BKC) IV PUSH (18:54)
[2023-07-28 00:20] VITALS: BP 126/82; PULSE 63; RESP 18; TEMP 37.4; O2SAT 96
[2023-07-28 03:40] VITALS: BP 114/75; PULSE 62; RESP 18; TEMP 37.4; O2SAT 98
[2023-07-28] MEDS: IBUPROFEN 600 MG TABLET PO ×2 (04:10→09:28)
[2023-07-28 04:12] LABS: Basophils Percent Auto 0.2 % (0.2-1.2); Hematocrit 37.6 % (37.0-47.0); Immature Granulocyte Absolute 0.03 K/mm3 (0.00-0.031); Immature Granulocyte Percent A 0.3 % (0-0.5); Lymphocytes Absolute Auto 1.18 K/mm3 (0.9-3.2); Lymphocytes Percent Auto 11.9 % (18.3-44.2); Mean Corpuscular HGB Conc 31.9 g/dl (32-36); Mean Platelet Volume 11.6 fl (7.4-10.4); Monocytes Absolute Auto 0.6 K/mm3 (0.1-0.6); Monocytes Percent Auto 5.6 % (2.6-8.5); Neutrophils Absolute Auto 8.1 K/mm3 (1.3-6.7); Platelet Count Result 234 k/mm3 (150-375); Red Cell Distribution Width 13.2 % (11.5-14.5); White Blood Count 9.9 K/mm3 (4.5-10.0)
[2023-07-28 04:27] LABS: Anion Gap 4 mmol/L (8-16); Blood Urea Nitrogen 8 mg/dL (7-17); Calcium 8.8 mg/dL (8.4-10.2); Carbon Dioxide 24 mmol/L (22-30); Chloride 107 mmol/L (98-107); Estimated CRCL calculation 83 ml/min; Estimated Glomerular Filt Rate > 60; Glucose 118 mg/dL (65-110); Sodium 135 mmol/L (137-145)
[2023-07-28] MEDS: LEVOTHYROXINE SODIUM 125 MCG TABLET PO (07:05)
[2023-07-28] MEDS: FLUoxetine HCL 20 MG CAPSULE 40 MG PO (07:05)
[2023-07-28] MEDS: ATORVASTATIN 10 MG TABLET PO (07:05)
--- NOTE | 2023-07-28 07:20 | PM.DS ---
DS: Admitting Diagnosis Discharge Date 07/28/23 Admitting Diagnosis pelvic pain uterine fibroid DS: Discharge Diagnosis Discharge Diagnosis (1) Uterine fibroid: Code(s): D25.9 - Leiomyoma of uterus, unspecified Status: Acute (2) Pelvic pain: Code(s): R10.2 - Pelvic and perineal pain Status: Acute DS: Summary Hospital Course Hospital Course: Camila Ambrose was admitted after robotic assisted total laparoscopic hysterectomy and bilateral salpingo-oophorectomy for pelvic pain and uterine fibroids. The above procedure was performed with no complications. She is doing well post op. She states her pain is well controlled with PO medications. She reports minimal bleeding. She is ambulating up to the chair. Her maldonado catheter was removed. She is tolerating PO without N/V. She reports passing flatus. Status at Discharge Functional status at discharge: independent ambulation Overall status at discharge: patient is progressing back to baseline Time Spent with Patient Time attestation: Total time spent providing and/or coordinating discharge services: Time spent: Less than 30 minutes Exam Const: General: comfortable and no acute distress Limitations: no limitations Resp: Effort & Inspection: normal respiratory effort Auscultation: clear to auscultation bilaterally Cardio: Rate: regular rate Rhythm: regular rhythm GI: Inspection: non-distended GI Palp: Yes Soft to palpation, Yes Tenderness to palpation present (GI) (milder tenderness to deep palpation) and No Guarding due to palpation present (GI) Auscultation: normal bowel sounds Other: incisions C/D/I covered with dermabond Urinary Catheter: Urinary Catheter: urine clear Skin: General skin exam: normal color Extrem: General: normal to inspection Psych: Mental Status: mental status grossly normal Affect: normal affect DS: Data Data Completed and Pending Pending studies at discharge: Pending at discharge 07/27/23 13:51 Surgical [PTH] Routine Labs on day of discharge: Labs from last 24 hours 07/28/23 03:50 WBC 9.9 RBC 4.00 L Hgb 12.0 Hct 37.6 MCV 94.0 MCH 30.0 MCHC 31.9 L RDW 13.2 Plt Count 234 MPV 11.6 H Immature Gran % (Auto) 0.3 Neut % (Auto) 82.0 H Lymph % (Auto) 11.9 L [place] % (Auto) 5.6 Eos % (Auto) 0.0 Baso % (Auto) 0.2 Lymph # (Auto) 1.18 [place] # (Auto) 0.6 Eos # (Auto) 0.0 Baso # (Auto) 0.0 Abs Immat Gran (auto) 0.03 Absolute Neuts (auto) 8.1 H Absolute Nucleated RBC 0.0 Nucleated RBC % 0.0 Sodium 135 L Potassium 4.0 Chloride 107 Carbon Dioxide 24 Anion Gap 4 L BUN 8 Creatinine 0.60 L Estim Creat Clear Calc 83 Estimated GFR > 60 Glucose 118 H Calcium 8.8 Discharge Plan Discharge Patient Disposition: Home, Self-Care Patient Instructions: Laparoscopic Hysterectomy (DC) Stand Alone Forms: General Discharge Instructions Follow-up/Referrals: Jairo Loera MD [Physician] - 2 Weeks Discharge Medications: No Action fluoxetine 40 mg capsule 40 mg PO QAM ergocalciferol (vitamin D2) 1,250 mcg (50,000 unit) capsule 50,000 unit PO WEEKLY Patient Comments: PT TAKES ON MONDAY levothyroxine [Synthroid] 125 mcg tablet 125 mcg PO DAILY atorvastatin 10 mg tablet 10 mg PO DAILY
[2023-07-28 08:15] VITALS: BP 102/63; PULSE 72; RESP 18; TEMP 36.9; O2SAT 99
[2023-07-28] MEDS: HYDROcodone/acetaminophen (*CRX) 5-325 MG TABLET 1 TAB PO (09:29)
--- NOTE | 2023-07-28 10:34 | P.PNAN_ITS ---
Anes - Prog Note Post-Op Date/Time: 07/28/23 10:34 Cardiovascular status: normal Respiratory status: normal Airway patency: baseline Mental status: baseline Post-Op hydration status: normal Vital Signs: Last Vital Signs Temp 98.5 F 07/28/23 08:15 Pulse 72 07/28/23 08:15 Resp 18 07/28/23 08:15 BP 102/63 07/28/23 08:15 Pulse Ox 99 07/28/23 08:15 O2 Del Method Room Air 07/27/23 15:25 O2 Flow Rate 8 07/27/23 14:10 Pain Score (VAS): 0/10 I/O: Intake & Output 07/27/23 07/28/23 07/28/23 23:59 07:59 15:59 Intake Total 550 Output Total 2500 Balance -1950 Laboratory Tests 07/28/23 03:50 07/28/23 03:50 07/28/23 03:50 WBC 9.9 RBC 4.00 L Hgb 12.0 Hct 37.6 MCV 94.0 MCH 30.0 MCHC 31.9 L RDW 13.2 Plt Count 234 MPV 11.6 H Immature Gran % (Auto) 0.3 Neut % (Auto) 82.0 H Lymph % (Auto) 11.9 L [place] % (Auto) 5.6 Eos % (Auto) 0.0 Baso % (Auto) 0.2 Lymph # (Auto) 1.18 [place] # (Auto) 0.6 Eos # (Auto) 0.0 Baso # (Auto) 0.0 Abs Immat Gran (auto) 0.03 Absolute Neuts (auto) 8.1 H Absolute Nucleated RBC 0.0 Nucleated RBC % 0.0 Sodium 135 L Potassium 4.0 Chloride 107 Carbon Dioxide 24 Anion Gap 4 L BUN 8 Creatinine 0.60 L Estim Creat Clear Calc 83 Estimated GFR > 60 Glucose 118 H Calcium 8.8 Post-procedural complaints: none Patient Feedback: Patient satisfied with anesthetic care.
== END 2023-07-28 09:35 | disposition home or self-care (01) ==
LOC: ANHSURGERY 09:46 → ANHOB2 15:33
PROVIDERS: PCP Family Medicine; Visit Provider Student in an Organized Health Care Education/Training Program
PROC: (CPT 58571; principal; 2023-07-27 12:00)
DX: D25.2 Subserosal leiomyoma of uterus (principal); N88.8 Other specified noninflammatory disorders of cervix uteri; N80.03 Adenomyosis of the uterus; D27.0 Benign neoplasm of right ovary; E78.5 Hyperlipidemia, unspecified; E03.9 Hypothyroidism, unspecified; F41.9 Anxiety disorder, unspecified; F32.A Depression, unspecified
CPT/HCPCS: 58571; S2900; 36415; 80048; 85025; 85027; 86850; 86900; 86901; 88307; 93005; 99199; A9270; J0690; J1100; J1170; J1885; J2250; J2405; J2704; J3010; J7030; J7120; J7121